=== PATIENT | male | born 1980 | race Caucasian/White ===

== ENCOUNTER 2024-12-31 18:43 | Emergency (ER) | payer BC, SELFPAY ==
[2024-12-31 19:04] VITALS: BP 142/83; PULSE 65; RESP 18; TEMP 36.4; O2SAT 98; BMI 23.0
--- NOTE | 2024-12-31 19:04 | ED.ABDPAIN ---
HPI - Abdominal Pain General Chief Complaint: Abdominal Pain Stated Complaint: abd pain Time Seen by Provider: 12/31/24 22:32 History of Present Illness ED Provider: Anastacio Ramos MD HPI narrative: 44-year-old male previously healthy no surgical or medical history no regular meds. Earlier today at about 230 was walking while walking felt a little bit of right lower quadrant discomfort. He went to urgent care they palpated him he said they had him jump around and he was having a little bit of discomfort that concerned them for possible appendicitis and sent him here. Patient had perhaps mild nausea earlier but no nausea or vomiting now denies fever no urologic symptoms including no testicular pain dysuria hematuria flank pain no prior stones. No surgical history. Related Data Allergies Allergy/AdvReac Type Severity Reaction Status Date / Time No Known Allergies Allergy Verified 12/31/24 19:04 [facility] Social History Social History Advance Directives: No Advance Directives Information Provided: Yes Do you have a plan to hurt others: No Plan Physical Exam ED Vital Signs: Vital Signs - 24 hr 12/31/24 19:04 12/31/24 21:29 12/31/24 23:31 Temperature 97.6 F 97.9 F 98.0 F Pulse Rate 65 55 63 Respiratory Rate 18 16 18 Blood Pressure 142/83 H 132/83 125/83 Pulse Oximetry 98 98 97 Oxygen Delivery Method Room Air Room Air Room Air BMI result Body Mass Index 23.0 Const Other: EXAM: Gen: Alert, awake, well appearing, well hydrated. Head: Atraumatic Eyes: Anicteric, Normal conjunctiva. ENT: Moist mucosa, no pallor. Neck: Supple. Respiratory: Breathing comfortably, No distress.Clear to auscultation bilaterally, symmetric chest expansion, No wheeze, rales, ronchi. Cardiovascular: Regular rate and rhythm. No murmurs or rub. Well perfused periphery, warm extremities. No edema. Abdominal: Soft, no objective distension. No palpable masses or obvious organomegaly. No focal tenderness, no guarding, no rebound tenderness or other peritoneal findings. Negative Rovsing. No hernias : No flank tenderness. Neuro: Alert. Gross movement of all extremities intact. Vital signs: See flowsheet Course Course Course Narrative: This is a Rapid Medical Exam performed in triage by Laxmi Freire PA-C. Full HPI, ROS and PE to be performed by primary ED provider. 44 yo M presenting to the ED sent in from c/o RLQ abd pain x few hours. Pain is intermittent, admits sx are imroved at present. denies N/V/D PE: abdomen soft nontender, no rebound or guarding Plan: labs, UA Medical Decision Making Medical Decision Making MDM Narrative: 44-year-old male with right lower quadrant pain earlier today mostly improved. Nausea no vomiting. Minimal leukocytosis 11 nonspecific. On examination here he does not have any tenderness in the abdomen specifically nontender McBurney's point. Rovsing is negative he has no peritoneal signs has a soft abdomen no hernia. Unclear what the etiology of his pain was earlier he and I had a long shared decision-making discussion we discussed the possibility of an early appendicitis risks and benefit of CT scan as the gold standard test. He and I agreed and I think it is reasonable that he continue to monitor his symptoms at home and return I gave him strict return precautions. Lab Data 12/31/24 19:29 12/31/24 19:29 Labs: Lab Results 12/31/24 Range/Units 19:29 WBC 11.1 H (4.8-10.8) X10*3/uL RBC 4.73 (4.60-5.80) X10*6/uL Hgb 13.8 L (14.0-18.0) g/dl Hct 39.1 L (42.0-52.0) % MCV 82.7 (80.0-98.0) fL MCH 29.2 (27.0-33.0) pg MCHC 35.3 (31.0-36.0) g/dl RDW 12.1 (11.0-16.0) % Plt Count 287 (160-400) X10*3/uL MPV 10.2 (9.4-12.4) fL Immature Gran % (Auto) 0.5 H (0.0-0.4) % Neut % (Auto) 76.4 H (45-73) % Lymph % (Auto) 15.7 L (20-40) % Noble % (Auto) 5.7 (2-11) % Eos % (Auto) 1.2 (0-4) % Baso % (Auto) 0.5 (0-2) % Lymph # (Auto) 1.7 (1.2-4.9) X10*3/uL Noble # (Auto) 0.6 (0.1-1.2) X10*3/uL Eos # (Auto) 0.1 (0.0-0.4) X10*3/uL Baso # (Auto) 0.1 (0.0-0.2) X10*3/uL Abs Immat Gran (auto) 0.05 H (0.00-0.03) X10*3/uL Absolute Neuts (auto) 8.5 H (2.0-8.3) x10*3/uL Absolute Nucleated RBC 0.000 (0.0-0.012) X10*3/uL Nucleated RBC % (auto) 0.0 (0.0-0.2) /100WBC Sodium 141 (135-145) mmol/L Potassium 3.9 (3.3-5.1) mmol/L Chloride 105 (96-108) mmol/L Carbon Dioxide 31 H (22-29) mmol/L Anion Gap 9 L (12-20) BUN 8 L (9-16) mg/dL Creatinine 0.74 (0.5-1.4) mg/dL Estim Creat Clear Calc 132.1 Estimated GFR > 60 Random Glucose 89 (60-115) mg/dL Calcium 9.1 (8.4-10.2) mg/dL Magnesium 2.1 (1.6-2.6) mg/dL Total Bilirubin 0.5 (0.0-1.0) mg/dL Direct Bilirubin 0.2 (0.0-0.5) mg/dL AST 24 (5-37) U/L ALT 16 (0-40) U/L Alkaline Phosphatase 92 (39-117) U/L Total Protein 7.0 (6.5-8.0) g/dL Albumin 4.4 (3.5-5.0) g/dL Lipase 12 (8-78) U/L Discharge Plan Discharge Clinical Impression: Abdominal pain Patient Disposition: Home, Self-Care Instructions: Abdominal Pain (ED) Additional Instructions: DISCHARGE DIAGNOSES: Abdominal pain right lower side unclear cause at this time HISTORY OF PRESENTATION: right lower abdomen pain when walking EMERGENCY DEPARTMENT COURSE,TESTS, TREATMENTS: While in the ED today lab work was performed and we examined your abdomen. You had a white blood cell count sign of inflammation minimally elevated from normal. He did not have fever and when I examined you you did not have tenderness of your abdomen or other signs to suggest acute appendicitis though we did consider this and had a discussion about the possibility of you having early appendicitis DISCHARGE MEDICATIONS: [We have made no changes to your regular medication regimen] FOLLOW-UP: Call your primary or general physician soon as possible to discuss your symptoms, your ED visit and to discuss follow up plans continue with normal follow up with your PCP INSTRUCTIONS & RETURN PRECAUTIONS: If any symptoms change first call your primary physician, if it is after-hours your primary doctors office should have a provider automotive airconditioning mechanic you can speak with. If the symptoms are severe or very concerning to you then call 911 or return to the ED. if you develop worsening pain of the right lower quadrant nausea vomiting fever return back to the emergency department Anastacio Ramos MD Emergency Physician [facility] Interventions: ED Discharge Assessment Last Done: 12/31/24 23:31 Discharge Date/Time: 12/31/24 23:32 Print Language: Amharic
[2024-12-31 19:32] LABS: MANUAL DIFF FLAG NO
[2024-12-31 19:35] LABS: Basophils Absolute Auto 0.1 X10*3/uL (0.0-0.2); Basophils Percent Auto 0.5 % (0-2); Eosinophils Absolute Auto 0.1 X10*3/uL (0.0-0.4); Eosinophils Percent Auto 1.2 % (0-4); Hematocrit 39.1 % (42.0-52.0); Hemoglobin 13.8 g/dl (14.0-18.0); Imm Gran Abs Auto 0.05 X10*3/uL (0.00-0.03); Imm Gran Pct Auto 0.5 % (0.0-0.4); Lymphocytes Absolute Auto 1.7 X10*3/uL (1.2-4.9); Lymphocytes Percent Auto 15.7 % (20-40); Mean Corpuscular HGB Conc 35.3 g/dl (31.0-36.0); Mean Corpuscular Hemoglobin 29.2 pg (27.0-33.0); Mean Corpuscular Volume 82.7 fL (80.0-98.0); Mean Platelet Volume 10.2 fL (9.4-12.4); Monocytes Absolute Auto 0.6 X10*3/uL (0.1-1.2); Monocytes Percent Auto 5.7 % (2-11); Neutrophils Absolute Auto 8.5 x10*3/uL (2.0-8.3); Neutrophils Percent Auto 76.4 % (45-73); Platelet Count 287 X10*3/uL (160-400); Red Blood Count 4.73 X10*6/uL (4.60-5.80); Red Cell Distribution Width 12.1 % (11.0-16.0); White Blood Count 11.1 X10*3/uL (4.8-10.8)
[2024-12-31 20:02] LABS: Alanine Aminotransferase 16 U/L (0-40); Albumin Level 4.4 g/dL (3.5-5.0); Alkaline Phosphatase 92 U/L (39-117); Anion Gap 9 (12-20); Aspartate Amino Transferase 24 U/L (5-37); Bilirubin Direct 0.2 mg/dL (0.0-0.5); Bilirubin Total 0.5 mg/dL (0.0-1.0); Blood Urea Nitrogen 8 mg/dL (9-16); Calcium 9.1 mg/dL (8.4-10.2); Carbon Dioxide 31 mmol/L (22-29); Chloride 105 mmol/L (96-108); Creatinine Clr Calc Pharmacy 132.1; Estimated Glomerular Filt Rate > 60; Glucose Random 89 mg/dL (60-115); Lipase 12 U/L (8-78); Magnesium 2.1 mg/dL (1.6-2.6); Potassium 3.9 mmol/L (3.3-5.1); Sodium 141 mmol/L (135-145)
[2024-12-31 21:29] VITALS: BP 132/83; PULSE 55; RESP 16; TEMP 36.6; O2SAT 98
[2024-12-31 23:31] VITALS: BP 125/83; PULSE 63; RESP 18; TEMP 36.7; O2SAT 97
== END 2024-12-31 23:32 | disposition home or self-care (01) ==
PROVIDERS: Physician Assistant; Emergency Provider Emergency Medicine
DX: R10.2 Pelvic and perineal pain (principal); R10.31 Right lower quadrant pain; R11.0 Nausea; Z79.899 Other long term (current) drug therapy
CPT/HCPCS: 36415; 80048; 80076; 83690; 83735; 85025; 99282; 99283